=== PATIENT | male | born 1990 | race African-American/Black ===

== ENCOUNTER 2021-01-04 09:06 | Emergency (ER) | payer SELFPAY ==
[~2021-01-04] VITALS: Ht 175.3 cm; Wt 62.7 kg
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
[2021-01-04] MEDS ORDERED: ACETAMINOPHEN 500 MG TABLET PO ONE (09:30)
[2021-01-04] MEDS ORDERED: IBUPROFEN 400 MG TABLET. PO ONE (09:30)
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
[2021-01-04] MEDS ORDERED: diazePAM 2 MG TABLET PO ONE (10:30)
[2021-01-04] MEDS ORDERED: MORPHINE SULFATE 4 MG/ML VIAL. IV ONE ×2 (10:30→12:30)
[2021-01-04 11:42] VITALS: BP 167/89
--- NOTE | 2021-01-04 13:12 | RAD ---
EXAMINATION: XR SHOULDER_RIGHT 2+ VIEWS CLINICAL HISTORY: Right glenohumeral dislocation status post reduction TECHNIQUE: XR SHOULDER_RIGHT 2+ VIEWS Number of Images/Views: 2 COMPARISON: 01/04/2021 9:35 AM FINDINGS/ IMPRESSION: Interval reduction of the right glenohumeral joint with satisfactory taoism of normal anatomic a lignment. No acute fracture. Electronically signed by: Brian Doan DO (01/04/2021 1:09 PM) [id number]
[2021-01-04] MEDS ORDERED: OXYC1TAB15 PO (13:24)
== END 2021-01-04 13:56 | disposition home or self-care (01) ==
LOC: ER 09:06
DX: S43.004A Unspecified dislocation of right shoulder joint, initial encounter (principal); V29.9XXA Motorcycle rider (driver) (passenger) injured in unspecified traffic accident, initial encounter; Y93.89 Activity, other specified; Y92.89 Other specified places as the place of occurrence of the external cause; Y99.8 Other external cause status
CPT/HCPCS: 23650; 73030; 96374; 96375; 96376; 99284; J2060; J2270